=== PATIENT | male | born 1960 | race Caucasian/White ===

== ENCOUNTER → 2017-07-28 | Day surgery (SDC) | payer BC ==
[2017-07-15 10:46] VITALS: BMI 24.0
[~2017-07-28] VITALS: Ht 185.4 cm; Wt 84.1 kg
[~2017-07-28] MED LIST: ALPR-411 PO; ATROPINE SULFATE 0.1 MG/ML 5ML SYR IV PRN; B-COTAB18 PO; CURCUMIN PO; EpHEDrine SULFATE INJ 50 MG/ML AMP IV PRN; GREE150C PO; LIDOCAINE HCL 2% 2 ML VIAL (20MG/ML) ONE; LISI20TA3 PO; LUTE15CA PO; MIDAZOLAM HCL 1 MG/ML 2ML VIAL ONE; MISCCAP63 PO; MOME6000 NAE; MULT-506 PO; OMEG10007 PO; ONDANSETRON INJ 2 MG/ML 2 ML VIAL ONE; PROPOFOL IV EMULSION 10 MG/ML 20 ML VIAL IV ONE; SODIUM CHLORIDE 0.9% 500ML 500 ML IV ONE; VITAMIN D PO
[2017-07-28 08:03] VITALS: Ht 185.4 cm; Wt 84.1 kg
--- NOTE | 2017-07-28 08:27 | Endo History and Physical ---
History & Physical Date of Service: Jul 28, 2017. Chief Complaint: FAMILY HX OF COLON CA MOTHER Referring Physician: DR THORNTON History of Present Illness 56 yo CM who presents for colonoscopy secondary to family history of colon cancer in mother. Past Surgical History Hx Cardiac Surgery: No Hx Internal Defibrillator: No Hx Pacemaker: No Hx Abdominal Surgery: No Hx of Implantable Prosthesis: No Hx Post-Op Nausea and Vomiting: No Hx Cancer Surgery: No Hx Thoracic Surgery: No Hx Orthopedic: No Hx Urinary Tract Surgery: No Family History Colon CA Social History Smoking Status: Former Smoker Hx Substance Use: No Hx Alcohol Use: Yes (1-2 GLASSES WINE NIGHTLY) Allergies Coded Allergies: Erythromycin (Verified Allergy, Unknown, rash, 07/28/17) Sulfa Antibiotics (Verified Allergy, Unknown, rash, 07/28/17) Tetracycline (Verified Allergy, Unknown, rash, 07/28/17) Current Medications Reported Home Medications Medications Dose Route/Sig Max Daily Dose Days Date Category Mometasone Furoate (Mometasone Furoate (Nasal)) 50 Mcg/Act Spr 2 [place] VIRA DAILY PRN 07/15/17 Reported Lutein (Lutein-Zeaxanthin) 1 Cap Cap 1 Cap PO DAILY 07/15/17 Reported [place]-3 (Fish Oil) 1 Ea Cap 1 Cap PO DAILY 07/15/17 Reported Prostate Health ([facility] Natural Products) 1 Cap Cap 1 Cap PO DAILY 07/15/17 Reported [Curcumin] 1 Tab PO DAILY 07/15/17 Reported Multivitamin (Multivitamins) Tab 1 Tab PO DAILY 07/15/17 Reported [Vitamin D] 3 Drops PO DAILY 07/15/17 Reported Vitamin B Complex (B-Complex Vitamins) 1 Tab Tab 1 Tab PO DAILY 07/15/17 Reported Xanax (Alprazolam) 0.5 Mg Tab 0.33 Tab PO HS PRN 07/15/17 Reported Prinivil (Lisinopril) 20 Mg Tab 0.5 Tab PO BID 07/15/17 Reported Vital Signs Weight (Kilograms): 84.09 Height (Feet): 6 Height (Inches): 1 Date Time Temp Pulse Resp B/P (MAP) Pulse Ox O2 Delivery O2 Flow Rate FiO2 07/28/17 08:12 36.1 64 16 158/100 (119) 96 Room Air Physical Exam General Appearance: WD/WN, no apparent distress Respiratory/Chest: Auscultation: breath sounds normal Cardiovascular: Heart Auscultation: RRR Abdomen: Bowel Sounds: normal Inspection & Palpation: soft, non-distended, no tenderness, guarding & rebound Assessment and Plan Assessment: 56 yo CM who presents for colonoscopy secondary to family history of colon cancer in mother. Plan: Proceed with colonoscopy.
--- NOTE | 2017-07-28 08:55 | Discharge Instructions ---
Endoscopy Patient Instructions Date / Procedure(s) Performed Jul 28, 2017. Colonoscopy Allergy Information Coded Allergies: Erythromycin (Verified Allergy, Unknown, rash, 07/28/17) Sulfa Antibiotics (Verified Allergy, Unknown, rash, 07/28/17) Tetracycline (Verified Allergy, Unknown, rash, 07/28/17) Discharge Date / Findings Jul 28, 2017. Colon polyps Diverticulosis Medication Instructions Stopped Medication(s): FISH OIL AND MVI OK to resume all medications today as prescribed Reported Home Medications Medications Dose Route/Sig Max Daily Dose Days Date Category Mometasone Furoate (Mometasone Furoate (Nasal)) 50 Mcg/Act Spr 2 [place] VIRA DAILY PRN 07/15/17 Reported Lutein (Lutein-Zeaxanthin) 1 Cap Cap 1 Cap PO DAILY 07/15/17 Reported [place]-3 (Fish Oil) 1 Ea Cap 1 Cap PO DAILY 07/15/17 Reported Prostate Health ([facility] [place] [facility] Natural Products) 1 Cap Cap 1 Cap PO DAILY 07/15/17 Reported [Curcumin] 1 Tab PO DAILY 07/15/17 Reported Multivitamin (Multivitamins) Tab 1 Tab PO DAILY 07/15/17 Reported [Vitamin D] 3 Drops PO DAILY 07/15/17 Reported Vitamin B Complex (B-Complex Vitamins) 1 Tab Tab 1 Tab PO DAILY 07/15/17 Reported Xanax (Alprazolam) 0.5 Mg Tab 0.33 Tab PO HS PRN 07/15/17 Reported Prinivil (Lisinopril) 20 Mg Tab 0.5 Tab PO BID 07/15/17 Reported Provider Instructions Activity Restrictions - No exercising or heavy lifting for 24 hours. - Do not drink alcohol the day of the procedure. - Do not drive a car or operate machinery until the day after the procedure. - Do not make any important decisions or sign important papers in 24 hours after the procedure. Following Day: - Return to full activity which may include returning to work/school. Diet Start your diet with liquids and light foods (jello, soup, juice, toast). Then eat your usual diet if not nauseated. Treatment For Common After Affects For mild abdominal pain, bloating, or excessive gas: - Rest - Eat lightly - Lie on right side Follow-Up Information Follow-up with DR THORNTON as scheduled Anesthesia Information What You Should Know You have had a procedure that required some medicine to reduce anxiety and discomfort. This treatment is called moderate sedation. After receiving the treatment, you may be sleepy, but you will be able to breathe on your own. The effects of the treatment may last for several hours. Follow these instructions along with Activity/Diet recommendations noted above: * Do NOT do anything where dizziness or clumsiness would be dangerous. * Rest quietly at home today, then you can be up and about tomorrow. * Have a responsible person stay with you the rest of today. * You may have had an I.V. today. If so, you may take the dressing off later today. Recommendations Call your doctor if: * Trouble breathing * Continuous vomiting for more than 24 hours * Temperature above 101 degrees * Severe abdominal pain or bloating * Pain not relieved by pain medicine ordered * There is increased drainage or redness from any incision * A large amount of rectal bleeding greater than 2-3 tablespoons. (If you had a polyp/s removed or have hemorrhoids, a small amount of blood - from the rectum is to be expected.) * You have any unanswered questions or concerns. IN THE EVENT OF A SERIOUS EMERGENCY, GO TO THE NEAREST EMERGENCY ROOM Your discharge instructions were prepared by provider Golden Roche. Patient Instructions Signature Page Brian Lo Patient (or Guardian) Signature/Date: I have read and understand the instructions given to me by my caregivers. Caregiver/RN/Doctor Signature/Date: The above-named patient and/or guardian has received patient instructions on this date. + Original Patient Signature Page (only) stays with chart. Please make copy for patient.
--- NOTE | 2017-07-28 09:05 | GI REPORT ---
Procedure Date: 07/28/2017 8:16 AM Procedure: Colonoscopy Indications: High risk colon cancer surveillance: Personal history of colonic polyps Medicines: Monitored Anesthesia Care Complications: No immediate complications. Estimated Blood Loss: Estimated blood loss: none. Procedure: Pre-Anesthesia Assessment: - Prior to the procedure, a History and Physical was performed, and patient medications and allergies were reviewed. The patient's tolerance of previous anesthesia was also reviewed. The risks and benefits of the procedure and the sedation options and risks were discussed with the patient. All questions were answered, and informed consent was obtained. Prior Anticoagulants: The patient has taken no previous anticoagulant or antiplatelet agents. ASA Grade Assessment: II - A patient with mild systemic disease. After reviewing the risks and benefits, the patient was deemed in satisfactory condition to undergo the procedure. After I obtained informed consent, the scope was passed under direct vision. Throughout the procedure, the patient's blood pressure, pulse, and oxygen saturations were monitored continuously. The Scope was introduced through the anus and advanced to the terminal ileum. The colonoscopy was performed without difficulty. The patient tolerated the procedure well. The quality of the bowel preparation was good. The terminal ileum, ileocecal valve, appendiceal orifice, and rectum were photographed. Findings: Two sessile polyps were found in the ascending colon. The polyps were 5 to 7 mm in size. These polyps were removed with a hot snare. Resection and retrieval were complete. Multiple small-mouthed diverticula were found in the sigmoid colon and in the descending colon. Impression: - Two 5 to 7 mm polyps in the ascending colon, removed with a hot snare. Resected and retrieved. - Diverticulosis in the sigmoid colon and in the descending colon. Recommendation: - Resume previous diet. - Continue present medications. - Repeat colonoscopy for surveillance based on pathology results. - Return to primary care physician as previously scheduled. Golden Roche DO 07/28/2017 9:04:32 AM This report has been signed electronically. Note Initiated On: 07/28/2017 8:16 AM I attest to the content of the Intraoperative Record and orders documented therein, exceptions below
--- NOTE | 2017-07-28 09:10 | Anesthesiology Progress Note ---
Anesthesia Post Op Note Date & Time Jul 28, 2017 at 09:09 Vital Signs Pain Intensity: 0 Vital Signs Past 12 Hours Date Time Temp Pulse Resp B/P (MAP) Pulse Ox O2 Delivery O2 Flow Rate FiO2 07/28/17 08:57 36.5 55 16 103/62 (76) 96 Room Air 07/28/17 08:12 36.1 64 16 158/100 (119) 96 Room Air Notes Mental Status: alert / awake / arousable, participated in evaluation Pt Amnestic to Procedure: Yes Nausea / Vomiting: adequately controlled Pain: adequately controlled Airway Patency, RR, SpO2: stable & adequate BP & HR: stable & adequate Hydration State: stable & adequate Anesthetic Complications: no major complications apparent
[2017-07-28 09:28] VITALS: BP 121/81; PULSE 59; O2SAT 97
== END | disposition home or self-care (01) ==
LOC: C.GI 07:41
PROVIDERS: ATTEND Internal Medicine
DX: Z12.11 Encounter for screening for malignant neoplasm of colon (principal); D12.2 Benign neoplasm of ascending colon; K57.30 Diverticulosis of large intestine without perforation or abscess without bleeding; Z80.0 Family history of malignant neoplasm of digestive organs; Z86.010 Personal history of colon polyps; Z87.891 Personal history of nicotine dependence